=== PATIENT | female | born 1985 | race Caucasian/White ===

== ENCOUNTER 2017-12-25 17:55 | Emergency (ER) | payer SELFPAY ==
[2017-12-25] MEDS ORDERED: Ketorolac Tromethamine 60 MG/2 ML VIAL ONE (19:43)
[2017-12-25] MEDS ORDERED: HYDROcodone/Acetaminophen 10/325 mg Tablet ONE (20:59)
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
== END 2017-12-25 21:07 | disposition home or self-care (01) ==
LOC: ERS 17:55
DX: S13.4XXA Sprain of ligaments of cervical spine, initial encounter (principal); J45.909 Unspecified asthma, uncomplicated; F41.9 Anxiety disorder, unspecified; F32.9 Major depressive disorder, single episode, unspecified; F17.210 Nicotine dependence, cigarettes, uncomplicated; V49.9XXA Car occupant (driver) (passenger) injured in unspecified traffic accident, initial encounter
CPT/HCPCS: 72125; 96372; 99406; J1885

== ENCOUNTER 2018-01-06 19:54 | Emergency (ER) | payer OTHER, SELFPAY ==
[2018-01-06] MEDS ORDERED: Ketorolac Tromethamine 30 MG/ML VIAL ONE (20:29)
--- NOTE | 2018-01-06 21:34 | RAD ---
LEFT FOOT THREE VIEWS: HISTORY: A 32-year-old female with a history of left great toe pain. FINDINGS: No fracture, dislocation, or other significant acute osseous abnormality. POS: [facility]
== END 2018-01-06 21:07 | disposition home or self-care (01) ==
LOC: ERS 19:54
DX: S90.111A Contusion of right great toe without damage to nail, initial encounter (principal); J45.909 Unspecified asthma, uncomplicated; F41.9 Anxiety disorder, unspecified; F32.9 Major depressive disorder, single episode, unspecified; F17.210 Nicotine dependence, cigarettes, uncomplicated; W20.8XXA Other cause of strike by thrown, projected or falling object, initial encounter
CPT/HCPCS: 96372; J1885

== ENCOUNTER 2018-03-03 13:52 | Emergency (ER) | payer SELFPAY ==
[2018-03-03] MEDS ORDERED: Dexamethasone 4 mg/ml Vial ONE (14:59)
[2018-03-03] MEDS ORDERED: Ketorolac Tromethamine 30 MG/ML VIAL ONE (14:59)
--- NOTE | 2018-03-03 15:38 | RAD ---
CHEST 2 VIEWS: COMPARISON: 03/09/07. HISTORY: Cough. FINDINGS: Normal cardiac silhouette. Pulmonary vessels and hilum are normal. Costophrenic angles are clear. No consolidation or mass. No pneumothorax or osseous abnormalities. IMPRESSION: No acute cardiopulmonary process. POS: [facility]
== END 2018-03-03 15:44 | disposition home or self-care (01) ==
LOC: ERS 13:52
DX: J20.9 Acute bronchitis, unspecified (principal); F41.9 Anxiety disorder, unspecified; F32.9 Major depressive disorder, single episode, unspecified; F17.210 Nicotine dependence, cigarettes, uncomplicated; J45.909 Unspecified asthma, uncomplicated; Z79.899 Other long term (current) drug therapy
CPT/HCPCS: 71046; 94640; 96372; J1100; J1885; J7620

== ENCOUNTER 2018-04-01 15:29 | Emergency (ER) | payer SELFPAY ==
[2018-04-01 16:15] LABS: Bilirubin Negative (Negative); Blood, Urine Negative (Negative); Clarity CLEAR (Clear); Glucose, Urine (Dipstick) Negative (Negative); Leukocyte Negative (Negative); Nitrite Negative (Negative); Protein, Urine (Dipstick) Negative (Neg-Trace); Specific Gravity, Urine 1.006 (1.002-1.036); Urobilinogen 0.2 mg/dL (0.2-1.0); pH, Urine 7.5 (5.0-9.0)
[2018-04-01 16:19] LABS: Pregnancy Test - Urine (BHCG) Negative (Negative); Pregu Control Background? CLEAR/WHITE (CLR/WHITE); Pregu Control Bar Appear? YES (CONTROL BAR); Specific Gravity 1.006 (1.002-1.036)
[2018-04-01] MEDS ORDERED: Pantoprazole 40 MG VIAL ONE (16:21)
[2018-04-01 16:27] LABS: #Eosinphils 0.1 thou/uL (0.0-0.7); #Lymphocytes 1.2 thou/uL (1.20-3.40); #Monocytes 0.4 thou/uL (0.11-0.59); #Neutrophils 6.2 thou/uL (1.40-6.50); %Basophils 0.3 % (0.0-1.0); %Eosinophils 0.7 % (0.0-10.0); %Lymphocytes 15.6 % (21.0-51.0); %Monocytes 4.6 % (0.0-10.0); %Neutrophils 78.7 % (42.0-75.0); Hemoglobin 12.9 g/dL (12.0-16.0); Mean Corpuscular HGB CONC 34.5 g/dL (32.0-36.0); Mean Corpuscular Hemoglobin 30.4 pg (27.0-31.0); Mean Corpuscular Volume 88.1 fL (78.0-98.0); Mean Platelet Volume 6.4 fL (7.4-10.4); Platelet Count 201 thou/uL (130-400); RBC Distribution Width 11.3 % (11.5-14.5); Red Blood Cell (RBC) Count 4.26 mill/uL (4.20-5.40); White Blood Cell (WBC) Count 7.8 thou/uL (4.8-10.8)
[2018-04-01 16:48] LABS: ALT (SGPT) 15 U/L (8-55); AST (SGOT) 19 U/L (5-34); Albumin 4.3 g/dL (3.5-5.0); Alkaline Phosphatase 61 U/L (40-150); Anion Gap 11 mmol/L (10-20); BUN (Urea Nitrogen) 7 mg/dL (7.0-18.7); Bilirubin, Total 0.5 mg/dL (0.2-1.2); Calc. Creatinine Clearance 0 mL/min (70-130); Calcium 9.4 mg/dL (7.8-10.44); Carbon Dioxide 20 mmol/L (22-29); Chloride 113 mmol/L (98-107); Estimated GFR-MDRD Greater than 90; Globulin 2.9 g/dL (2.4-3.5); Glucose 110 mg/dL (70-105); Lipase 67 U/L (8-78); Potassium 3.8 mmol/L (3.5-5.1); Protein, Total 7.2 g/dL (6.0-8.3); Sodium 140 mmol/L (136-145)
--- NOTE | 2018-04-01 16:53 | CT ---
CONTRAST ENHANCED CT IMAGES OF THE ABDOMEN AND PELVIS: 04/01/18 HISTORY: Patient with history of intermittent vomiting for two days. History of cholecystectomy. Contrast enhanced CT images of the abdomen and pelvis is obtained after the administration of IV cont rast. Images demonstrate the lung bases to be unremarkable. No evidence of free intraperitoneal air seen. T he spleen is unremarkable. The pancreas is unremarkable. The gallbladder has been surgically removed . The liver is unremarkable except for a small area of hypodensity seen on axial image #31 in the inf erior aspect of the right hepatic lobe. This may represent a cyst or hepatic lesion too small to royce acterize. The lesion measures approximately 4 mm in maximum dimension. Numerous nonobstructing left l ower pole renal calculi seen, 2 to 3 mm in diameter. No evidence of significant periaortic lymphadenopathy seen. A normal appendix is seen. No dilated loops of small bowel or colon seen. No evidence of ascites seen. IMPRESSION: 1. Status post cholecystectomy. 2. Nonobstructing lower pole left renal calculi. POS: [facility]
== END 2018-04-01 17:40 | disposition home or self-care (01) ==
LOC: ERS 15:29
DX: R10.13 Epigastric pain (principal); R10.11 Right upper quadrant pain; F32.9 Major depressive disorder, single episode, unspecified; F41.9 Anxiety disorder, unspecified; F17.210 Nicotine dependence, cigarettes, uncomplicated; J45.909 Unspecified asthma, uncomplicated; Z87.442 Personal history of urinary calculi
CPT/HCPCS: 36415; 74177; 80053; 81003; 81025; 82150; 83690; 85025; 96361; 96372; 96374; C9113

== ENCOUNTER 2018-06-10 17:53 | Emergency (ER) | payer OTHER, SELFPAY ==
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
== END 2018-06-10 20:00 | disposition home or self-care (01) ==
LOC: ERS 17:53
DX: S16.1XXA Strain of muscle, fascia and tendon at neck level, initial encounter (principal); J45.909 Unspecified asthma, uncomplicated; F17.210 Nicotine dependence, cigarettes, uncomplicated; V43.52XA Car driver injured in collision with other type car in traffic accident, initial encounter
CPT/HCPCS: 72125

== ENCOUNTER 2018-08-04 18:39 | Emergency (ER) | payer SELFPAY ==
[2018-08-04] MEDS ORDERED: HYDROcodone/Acetaminophen 5/325 mg Tablet ONE ×2 (19:07→19:20)
== END 2018-08-04 20:13 | disposition home or self-care (01) ==
LOC: ERS 18:39
DX: K08.89 Other specified disorders of teeth and supporting structures (principal); J45.909 Unspecified asthma, uncomplicated; Z87.891 Personal history of nicotine dependence; Z87.442 Personal history of urinary calculi
CPT/HCPCS: 99282

== ENCOUNTER 2018-10-05 15:32 | Emergency (ER) | payer SELFPAY ==
[2018-10-05 16:12] LABS: #Basophils 0.1 thou/uL (0.0-0.2); #Lymphocytes 1.4 thou/uL (1.20-3.40); #Monocytes 0.4 thou/uL (0.11-0.59); #Neutrophils 6.6 thou/uL (1.40-6.50); %Basophils 0.6 % (0.0-1.0); %Eosinophils 0.5 % (0.0-10.0); %Lymphocytes 16.1 % (21.0-51.0); %Monocytes 4.6 % (0.0-10.0); %Neutrophils 78.2 % (42.0-75.0); Hemoglobin 13.9 g/dL (12.0-16.0); Mean Corpuscular HGB CONC 34.5 g/dL (32.0-36.0); Mean Corpuscular Hemoglobin 30.5 pg (27.0-31.0); Mean Corpuscular Volume 88.4 fL (78.0-98.0); Mean Platelet Volume 6.7 fL (7.4-10.4); Platelet Count 282 thou/uL (130-400); RBC Distribution Width 11.3 % (11.5-14.5); Red Blood Cell (RBC) Count 4.56 mill/uL (4.20-5.40); White Blood Cell (WBC) Count 8.4 thou/uL (4.8-10.8)
[2018-10-05] MEDS ORDERED: Ketorolac Tromethamine 30 MG/ML VIAL ONE (16:16)
[2018-10-05 16:19] LABS: Bilirubin Negative (Negative); Blood, Urine Small (Negative); Clarity CLEAR (Clear); Glucose, Urine (Dipstick) Negative (Negative); Leukocyte Negative (Negative); Nitrite Negative (Negative); Protein, Urine (Dipstick) Negative (Neg-Trace); Specific Gravity, Urine 1.009 (1.002-1.036); Urobilinogen 0.2 mg/dL (0.2-1.0); pH, Urine 7.5 (5.0-9.0)
[2018-10-05 16:21] LABS: Pregnancy Test - Urine (BHCG) Negative (Negative); Pregu Control Background? CLEAR/WHITE (CLR/WHITE); Pregu Control Bar Appear? YES (CONTROL BAR); Specific Gravity 1.009 (1.002-1.036)
[2018-10-05] MEDS ORDERED: Ondansetron PF 4 MG/2 ML Vial ONE (16:22)
[2018-10-05 16:24] LABS: Bacteria/HPF None Seen HPF (None Seen); Hyaline Casts/LPF 0-3 HYALINE CAST LPF (0-3 Hyaline); Pathc Cast-AUWi Flag 0.29 (0-2.49); RBC/HPF 0-3 HPF (0-3); Squamous Epithelial None Seen HPF (0-3); WBC/HPF None Seen HPF (0-3)
[2018-10-05 16:36] LABS: ALT (SGPT) 18 U/L (8-55); AST (SGOT) 21 U/L (5-34); Albumin 4.7 g/dL (3.5-5.0); Alkaline Phosphatase 76 U/L (40-150); Anion Gap 14 mmol/L (10-20); BUN (Urea Nitrogen) 6 mg/dL (7.0-18.7); Bilirubin, Total 0.5 mg/dL (0.2-1.2); Calc. Creatinine Clearance 0 mL/min (70-130); Carbon Dioxide 21 mmol/L (22-29); Chloride 110 mmol/L (98-107); Estimated GFR-MDRD Greater than 90; Globulin 3.4 g/dL (2.4-3.5); Glucose 121 mg/dL (70-105); Potassium 3.9 mmol/L (3.5-5.1); Protein, Total 8.1 g/dL (6.0-8.3); Sodium 141 mmol/L (136-145)
[2018-10-05] MEDS ORDERED: Morphine 4 MG/ML VIAL ONE (17:42)
[2018-10-05] MEDS ORDERED: Lidocaine 2% 10 ML INJ ONE (17:42)
--- NOTE | 2018-10-05 18:49 | CT ---
ABDOMEN CT WITHOUT CONTRAST PELVIC CT WITHOUT CONTRAST: History: Previous cholecystectomy. Right flank pain. Pain upon urination. Comparison: 04-01-18 FINDINGS: CT ABDOMEN: The lung bases are clear. Normal heart size. No pericardial fluid. The descending thoracic aorta and abdominal aorta are of normal caliber. No periaortic fat stranding. Surgically absent gallbladder. Limited evaluation of the solid organs by the lack of IV contrast. Arianna ssly no solid organ abnormality. Decreased intraabdominal fat limits evaluation for inflammatory change. No retrocrural, periportal, a nd gastrohepatic lymphadenopathy. No enteric mass, lymphadenopathy, free air or free fluid. There are bilateral nonobstructing intrarenal calculi measuring 1-2 mm. No evidence of left sided obs tructive uropathy. There is mild dilation of the right intrarenal collecting system. The right ureter appears to be decompressed. No obvious calcification along the course of the right ureter. Limited evaluation of the alimentary canal due to lack of oral contrast. Grossly no evidence of bowel obstruction. Ileocecal junction is normal. Normal caliber appendix. Scattered fecal material in a no ndistended, nondilated colon. PELVIC CT: Unremarkable urinary bladder. Uterus and adnexal structures are grossly unremarkable. Trace amount of free fluid in the pelvis. No mass, lymphadenopathy or free air. No lytic or blastic lesions in the osseous structures. IMPRESSION: 1. Bilateral nonobstructing renal calculi. 2. Mild dilatation of the right intrarenal collecting system without associated obstructing calculus. No emergent IVP is recommended. 3. Normal caliber appendix. POS: [facility]
--- NOTE | 2018-10-05 20:03 | ULT ---
LIMITED ULTRASOUND OF THE URINARY BLADDER: Date: 10-05-18 History: Right flank pain and painful urination. FINDINGS: The pre void urinary bladder volume is 334.4 ml. Small amount of linear echogenicities are seen withi n the distended urinary bladder, but this may be related to reverberation artifact although a small a mount of debris is not entirely excluded. Urinary bladder otherwise has a normal sonographic appearan ce. Color flow evaluation of the urinary bladder to evaluate for ureteral jet does demonstrate faint ureteral jets bilaterally. There is no evidence of a post void residual with complete emptying of the urinary bladder after void ing. IMPRESSION: 1. Normal appearing urinary bladder with questionable minimal debris within the urinary bladder; alth ough, this may be artifactual. 2. Faint visualization of the ureteral jets bilaterally. 3. No post void residual. POS: [facility]
== END 2018-10-05 18:41 | disposition home or self-care (01) ==
LOC: ERS 15:32
DX: N28.82 Megaloureter (principal); J45.909 Unspecified asthma, uncomplicated; F32.9 Major depressive disorder, single episode, unspecified; Z87.891 Personal history of nicotine dependence
CPT/HCPCS: 36415; 74176; 76856; 80053; 81003; 81015; 81025; 85025; 87086; 96361; 96374; 96375; J1885; J2270; J2405

== ENCOUNTER 2019-01-05 20:32 | Emergency (ER) | payer SELFPAY | END 2019-01-05 21:59 | disposition left against medical advice (07) | LOC: ERS 20:32 | DX: Z53.21 Procedure and treatment not carried out due to patient leaving prior to being seen by health care provider (principal) ==